=== PATIENT | female | born 1965 | race Caucasian/White ===

== ENCOUNTER → 2020-05-06 13:08 | Outpatient (CLI) | payer BC, SELFPAY ==
[2020-05-06 13:52] VITALS: BP 123/66; PULSE 71; RESP 18; TEMP 36.6; O2SAT 18
[2020-05-06 14:07] VITALS: BP 131/71; PULSE 73; RESP 18; TEMP 36.6; O2SAT 100
[2020-05-06 14:18] VITALS: BP 135/66; PULSE 66; RESP 18; TEMP 36.6; O2SAT 100
[2020-05-06 14:33] VITALS: BP 119/74; PULSE 69; RESP 18; TEMP 36.6; O2SAT 100
[2020-05-06 14:48] VITALS: BP 121/61; PULSE 70; RESP 18; TEMP 36.6; O2SAT 100
[2020-05-06 15:01] VITALS: BP 134/74; PULSE 63; RESP 18; TEMP 36.9; O2SAT 100
== END ==
PROVIDERS: PCP Family Medicine; Visit Provider Family Medicine
DX: U07.1 COVID-19 (principal)
CPT/HCPCS: 96365

== ENCOUNTER → 2020-08-28 08:47 | Outpatient (CLI) | payer BC, SELFPAY ==
--- NOTE | 2020-08-28 08:53 | CT_ITS ---
PROCEDURE: CT ABDOMEN PELVIS WO/W CON CLINICAL INDICATION: GROSS HEMATURIA COMPARISON: No exams were available for comparison TECHNIQUE: IV Contrast: 75ML OPTIRAY 350 Oral Contrast none given Axial images obtained with sagittal and coronal reformats. All CT scans at the facility use one or more dose reduction, viz: automated exposure control, ma/kV adjustment per patient size (including targeted exams where dose is matched to indication, i.e. head), or iterative reconstruction technique. FINDINGS: Lower thorax: No acute finding ABDOMEN: Liver: No masses or biliary dilatation. Gallbladder: Nondistended. No radio opaque stones. Pancreas: No masses or peripancreatic fluid collections. Spleen: unremarkable Adrenals: unremarkable Kidneys/ureters: Kidneys are normal in size and show symmetrical function both grossly normal. Contrast images show no calculi. There is no obstructive uropathy of either kidney. ABDOMEN & PELVIS: Stomach bowel: Nondistended. No obvious mass or thickening. Small bowel appears normal. There is moderate scattered stool and gas seen throughout the colon. Peritoneum: No abnormal fluid collections. No obvious inflammatory changes. No free air. Lymph nodes: No enlarged lymph nodes apparent. Vasculature: No evidence of abdominal aortic aneurysm. No retroperitoneal hemorrhage evident. There are rather prominent venous structures just anterior and superior to uterus. Bones: No acute fracture PELVIS: Reproductive: The uterus is normal in size and slightly retroverted with slightly prominent vascularity possibly within uterine fibroids. Bladder: Nondistended. No obvious stones or masses. There is a tiny amount of free fluid in the cul-de-sac likely physiologic. Appendix: I do not definitely identify the appendix but no pericecal inflammatory changes. 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 Question small uterine fibroid as well. Dictated by: Dr. Justin Foote MD 08/28/2020 10:00 Dr. Justin Foote MD in [place] 08/28/2020 10:00
== END ==
PROVIDERS: PCP Family Medicine; Visit Provider Family Medicine
DX: R31.0 Gross hematuria (principal)
CPT/HCPCS: 74178; Q9967

== ENCOUNTER → 2020-09-09 15:02 | Outpatient (CLI) | payer BC, SELFPAY | PROVIDERS: Visit Provider Urology | DX: Z01.812 Encounter for preprocedural laboratory examination (principal); Z20.822 Contact with and (suspected) exposure to COVID-19; R31.9 Hematuria, unspecified | CPT/HCPCS: U0003 ==

== ENCOUNTER 2020-09-10 15:00 | Outpatient (RCR) | payer BC, SELFPAY | END 2020-09-10 15:05 | disposition home or self-care (01) | LOC: PT 15:00 | PROVIDERS: PCP Family Medicine; Visit Provider Family Medicine | DX: M54.16 Radiculopathy, lumbar region (principal) | CPT/HCPCS: 97010; 97014; 97033; 97035; 97140; 97163; G0283 ==

== ENCOUNTER 2020-09-11 12:08 | Day surgery (SDC) | payer BC, SELFPAY ==
[2020-09-08 14:57] VITALS: BMI 25.4
[2020-09-11] VITALS (11 sets, daily range): BP systolic 104–117; BP diastolic 54–77; PULSE 65–77; RESP 16–20; TEMP 36.2–37.7; O2SAT 95–100
--- NOTE | 2020-09-11 13:33 | P.PN_ITS ---
[facility] Anesthesia Checklist - Patient Identification Patient Identification: Arm Band - Structural Data Admitted From: Home Planned Operative Procedure/s: Cystoscopy with Possible TURBT Consent for Planned Operative Procedure(s) Verified: Yes Verified Documents: Surgical Consent, History and Physical - NPO Status Verified Time NPO: 00:00 - Additional verifications Anesthesia Reactions: No Hx Blood Transfusions: No Blood Transfusion Reaction: No - Airway Assessment C-Spine Mobility Assessed: Yes (mp2) TMJ Mobility Assessed: Yes Dentition: Good Dentition - Neurological Assessment Level of Consciousness: Awake, Alert - Anesthesia Plan Anesthesia Risk discussed: Yes Anesthesia Plan: Verified ASA Class: II Anesthesia Type: General [facility] History Medical History: Reports:: Cancer (leukemia - 2016) Denies:: Diabetes Mellitus Type 1, Diabetes Mellitus Type 2, Internal Pacemaker, Lung Disease, MRSA, Seizures *Have you ever received a pneumonia vaccine?: No *Have you received a flu vaccine this season?: Yes Other Medical History: Denies: Blood Transfusion Reaction Anesthesia experience/problems:: nac Other Surgeries: Yes: No Previous Surgery, Colonoscopy. No: Pacemaker Amputation: No Fractures: No - *Social History Last grade of school completed: Advanced degree Smoking Status: Never smoker Alcohol Intake: current Alcohol Intake Frequency:: a few times a week Substance Use Type: denies use *Occupational Status:: employed Housing: house Household Members: spouse *Travel in the last 8 weeks: None Family Hx:: No significant family history
--- NOTE | 2020-09-11 14:09 | HMH.ANESI ---
[facility] Anesthesia Record Part I Intake, IV Amount: 1,000 Estimated blood loss (mL): 0 Urine output (mL): 0 Blood Pressure: 104/54 SaO2: 95 Pulse Rate: 73 Respiratory Rate: 16 Temperature: 97.9 F Patient is:: Drowsy, Stable Stable to PACU at:: 14:05
--- NOTE | 2020-09-11 15:22 | P.OP_ITS ---
Date of procedure: 09/11/20 Pre-op Diagnosis:: Gross hematuria Post-op Diagnosis:: Gross hematuria from probable bladder tumor Procedure performed:: Transurethral resection of abnormal bladder tissue with fulguration Surgeon:: Niles Christianson MD FIRST OFFICER AND [employer]IGHT INSTRUCTOR:: Eber Alvarado Anesthesia: LMA Estimated blood loss (mL): 2 Clinical Note:: 55-year-old white female with a 1 month history of gross hematuria on a daily basis. Recent CT scan showed no evidence of upper or lower tract abnormalities and she presents today for cystoscopic evaluation. Operative findings:: Bleeding vessel noted at the 4 o'clock position in the bladder. The tissue around the bleeding vessel is abnormal but shallow and fluffy in appearance. Tissue was resected and fulgurated. Tissue sent off for analysis. Operative note:: Patient taken to the operating room after informed consent was obtained. She was placed on the operating table in the supine position and general anesthesia administered. Prepped of antibiotics administered. She was then placed into the dorsal lithotomy position and prepped draped in the standard surgical fashion. The urethra was a bit stenotic and it was dilated to [place]. The [place] cystoscope then passed into the bladder and the bladder examined in a systematic fashion. There was a blood vessel that was actively bleeding at the 4 o'clock position. The tissue around the bleeding vessel was fluffy but shallow in appearance. There was not a typical bladder cancer appearance. No other abnormalities were noted. The cystoscope removed and our [place] resectoscope sheath with obturator passed into the urethra. The resectoscope passed through the sheath and the tissue at the 4 o'clock position was resected. The tissue did not resect very cleanly however. The tissue was sent off for analysis. The base of the tissue was fulgurated and hemostasis achieved. The scope was then removed and a 16 [place] Yadav catheter placed. Patient tolerated procedure well there are no complications. Condition: stable Disposition: PACU Specimens:: Bladder tissue Complications:: None
--- NOTE | 2020-09-14 07:14 | P.PN_ITS ---
[facility] Anesthesia Record Part II Discharge Time: 14:35 Destination: Surgical Day Care (OP Surgery) PACU nurse assessment reviewed?: Yes Patient Condition:: Good Anesthesia Complications:: None Swallowing reflex intact?: Yes Cyanosis?: No Blood Pressure: 109/65 Pulse Rate: 65 Temperature: 97.1 F Mental Status: Alert & Oriented Pain level:: 0 Nausea and/or vomitting:: None Intake, IV Amount: 0
[2020-09-14 07:15] VITALS: BP 109/65; PULSE 65; TEMP 36.2
== END 2020-09-11 15:27 | disposition home or self-care (01) ==
LOC: OR 12:10
PROVIDERS: PCP Family Medicine; Visit Provider Urology
PROC: 0TJB8ZZ Inspection of Bladder, Via Natural or Artificial Opening Endoscopic (ICD-10-PCS; CPT 52000; principal; 2020-09-11 13:45)
DX: N32.89 Other specified disorders of bladder (principal); Z79.899 Other long term (current) drug therapy; Z85.6 Personal history of leukemia; Z88.0 Allergy status to penicillin
CPT/HCPCS: 52224; J2405

== ENCOUNTER → 2021-04-02 12:35 | Outpatient (CLI) | payer BC, SELFPAY | PROVIDERS: Visit Provider Urology | DX: Z01.812 Encounter for preprocedural laboratory examination (principal); Z11.52 Encounter for screening for COVID-19; R31.9 Hematuria, unspecified | CPT/HCPCS: C9803; U0003; U0005 ==

== ENCOUNTER → 2021-04-16 17:07 | Outpatient (CLI) | payer BC, SELFPAY | PROVIDERS: Visit Provider Urology | DX: Z01.812 Encounter for preprocedural laboratory examination (principal); Z11.52 Encounter for screening for COVID-19; R31.9 Hematuria, unspecified | CPT/HCPCS: C9803; U0003; U0005 ==

== ENCOUNTER 2021-04-19 08:51 | Day surgery (SDC) | payer BC, SELFPAY ==
[2021-04-01 09:12] VITALS: BMI 24.3
[2021-04-19 09:11] VITALS: BP 104/71; PULSE 79; RESP 18; TEMP 36.7; O2SAT 96
[2021-04-19 09:58] VITALS: BP 121/78; PULSE 68; RESP 16; TEMP 36.2; O2SAT 99
--- NOTE | 2021-04-19 12:13 | HMH.OPNOTE ---
Date of procedure: 04/19/21 Pre-op Diagnosis:: History of gross hematuria due to an indeterminate bladder lesion. Post-op Diagnosis:: Same Procedure performed:: Cystoscopy Surgeon:: Niles Christianson MD Anesthesia: local Estimated blood loss (mL): 0 Clinical Note:: 86-year-old white female with history of gross hematuria. Cystoscopy was performed 6 months ago that showed an abnormality in the bladder that was bleeding. The lesion was resected the base of the lesion was cauterized. Pathology showed an indeterminate lesion and no carcinoma. Operative findings:: No evidence of bladder abnormalities. Operative note:: Patient taken to the cystoscopy suite after informed consent was obtained. On the stretcher she was placed into the frog-leg position. She was prepped and draped in standard surgical fashion and 2% lidocaine placed into the urethra. 5 minutes the flexible cystoscope introduced into the urethra and into the bladder without difficulty. The bladder was examined in a systematic fashion. There is no evidence of mucosal abnormalities, stones, diverticula, trabeculation or bladder tumor. The ureteral orifices were in their normal anatomic position with clear efflux of urine. The bladder neck and urethra were within normal limit. Scope removed the patient tolerated the procedure well there are no complications. We discussed the findings and we will see her back in 1 year with cystoscopy. Condition: stable Disposition: same day Specimens:: None Complications:: None
== END 2021-04-19 10:10 | disposition home or self-care (01) ==
LOC: OUTP 08:56
PROVIDERS: PCP Family Medicine; Visit Provider Urology
PROC: (CPT 52000; principal; 2021-04-19 09:30)
DX: N32.9 Bladder disorder, unspecified (principal); R31.0 Gross hematuria; I49.9 Cardiac arrhythmia, unspecified; Z85.9 Personal history of malignant neoplasm, unspecified; Z79.899 Other long term (current) drug therapy; Z88.0 Allergy status to penicillin; Z88.1 Allergy status to other antibiotic agents
CPT/HCPCS: 52000

== ENCOUNTER 2021-05-10 16:30 | Outpatient (RCR) | payer BC, SELFPAY ==
--- NOTE | 2021-04-02 10:35 | HMH.PTOPEV ---
PT Outpatient Evaluation Rehab PT Outpatient Evaluation Start: 04/02/21 09:42 Freq: Status: Active Protocol: Document 04/02/21 09:42 YOVANI (Rec: 04/02/21 10:35 YOVANI [id number]) Electronically Signed By Vaughn Kwok, PT 04/02/21 09:42 Outpatient Therapy Subjective History Subjective History Pt reports h/o chronic right sided/midline neck pain beginning in lat . Pt reports pain has progressed w/ radicular s/s down right UE to forearm/hand area w/pain, weakness, and N&T. Pt reports some localized right elbow pain (lateral epicondyle), and some cervico-genic HUNT s/s. PMH:migraine HUNT's Chief Complaint Pain,Stiff,Paresthesia, Weakness Symptom Type Ache,Dull,Numbness,Tingling Symptoms Relieved By Rest/Positioning Symptoms Aggravated By Physical Activity,Lifting Prior Functional Limitations Reaching,Lifting,Housework, Desk Work/Reading,Driving Current Functional Limitations Reaching,Lifting,Housework, Desk Work/Reading,Driving Symptom Description Constant but Variable Level of pain today (0-10) 2 Pain scale - at its best (0-10) 1 Pain scale - at its worst (0-10) 7 Cervical Eval Palpation Cervical Muscles R Cervical Paraspinal,R CT Junction,R Upper Trapezius Cervical/Thoracic Palpation Findings Tenderness,Trigger Point, Muscle Guarding Flexibility Deficits Upper Trapezius Muscle Length (R) Moderate Tightness Levaetor Scapulae Muscle Length (R) Mild Tightness Scalene Group Muscle Length (R) Mild Tightness Passive Joint Mobility Cervical PIVM WNL: R OA L OA R AA L AA R C2/3 L C2/3 R C3/4 L C3/4 R C4/5 L C4/5 R C5/6 L C5/6 R C6/7 L C6/7 R C7/T1 L C7/T1 AROM Cervical Spine Extension Active Range of 0-36 Motion (degrees) Cervical Spine Flexion Active Range of 0-34 Mynor
--- NOTE | 2021-05-04 15:27 | HMH.RHREAS ---
Rehab Reassessment Rehab OP Re-assessment Start: 05/04/21 15:05 Freq: Status: Active Protocol: Document 05/04/21 15:06 YOVANI (Rec: 05/04/21 15:26 YOVANI [id number]) Electronically Signed By Vaughn Kwok, PT 05/04/21 15:06 Rehab Re-assessment Subjective Subjective Pt reports 0-1/10 neck pain on VAS w/activity and at rest, and reports no headaches in last ~7-10days, and feels 90- 95% better since I eval. Objective Objective Notes CROM: FLX 0-75, EXT 0-55, R SB 0-38, L SB 0-45, ZAK. ROT 0- 55 MMT: ZAK. DELTOID 4+-5/5 TTP: RIGHT UT MM 0-1/4, RIGHT CERVICAL PARASPINALS 0-1/4 Assessment Progress Assessment Progressing as Expected Assessment Notes IMPROVED CROM, STRENGTH, TTP Patient goals met STG'S 12/10 LTG'S 09/09 Goals Not Met LTG'S 06/09 Plan Plan Pt to continue w/skilled P.T. to make further improvements in CROM (R SB), and TTP to allow for optimal function at home and w/work related activity Frequency of Therapy 1-2x/wk Duration of therapy 1-3wks Time and Billing Re-Eval Time 15 Re-Eval Billing Units 1 PHYSICIAN CERTIFICATION: I certify the specified therapy services for Margie Corey are required, authorized, and reviewed every 30 days.
== END 2021-05-10 16:35 | disposition home or self-care (01) ==
LOC: PT 16:30
PROVIDERS: PCP Family Medicine; Visit Provider Family Medicine
DX: M54.12 Radiculopathy, cervical region (principal)
CPT/HCPCS: 20560; 97010; 97012; 97014; 97035; 97110; 97140; 97163; 97164; G0283

== ENCOUNTER → 2021-07-19 11:10 | Outpatient (CLI) | payer BC, SELFPAY ==
--- NOTE | 2021-07-19 11:18 | XR_ITS ---
FINAL REPORT CLINICAL HISTORY: RT SHOULDER PAIN FINDINGS: RIGHT SHOULDER: 3 views of the right shoulder were obtained. There is no acute fracture or dislocation. There is mild acromioclavicular joint degenerative change. There is no soft tissue abnormality. IMPRESSION: Mild acromioclavicular joint degenerative change. Reviewed, Interpreted and Dictated by Shaun Childs III, MD Transcribed by Delbert Mcmillan Authenticated by Shaun Childs III, MD on 07/19/2021 01:33:11 PM [facility]
--- NOTE | 2021-07-19 11:18 | XR_ITS ---
FINAL REPORT CLINICAL HISTORY: RT SHOULDER PAIN,ANESTHESIA OF SKIN,PARESTHESIA OF SKIN FINDINGS: CERVICAL SPINE Five views were obtained. There is no acute fracture. There is mild anterolisthesis of C4 on C5. There are ybat-[id number]-vntfhoxk degenerative changes. There are disc osteophyte complexes at C5-6 and C6-7. There is mild bilateral C5-C6 and C6-7 neural foraminal narrowing IMPRESSION: [id number]-ib-zhmjtjsk degenerative changes. Reviewed, Interpreted and Dictated by Shaun Childs III, MD Transcribed by Delbert Mcmillan Authenticated by Shaun Childs III, MD on 07/19/2021 01:33:[address] [facility]
== END ==
PROVIDERS: PCP Family Medicine; Visit Provider Nurse Practitioner Family
DX: M25.511 Pain in right shoulder (principal); R20.0 Anesthesia of skin; R20.2 Paresthesia of skin
CPT/HCPCS: 72050; 73030

== ENCOUNTER → 2023-03-09 08:55 | Outpatient (CLI) | payer BC, SELFPAY ==
--- NOTE | 2023-03-09 09:00 | XR_ITS ---
FINAL REPORT CLINICAL HISTORY: Osteoporosis screening COMPARISON: None FINDINGS: Using L1-4, the bone mineral density of the spine is 1.258 g/cm2, corresponding to T-score of 1.9, within normal limits. Using the left hip, the bone mineral density of the femoral neck is 1.275 g/cm2, corresponding to a T-score of 2.7, within normal limits. Using the right hip, the bone mineral density of the femoral neck is 1.298 g/cm2, corresponding to a T-score of 2.9, within normal limits. FRAX not reported because all T-scores at or above-1.0. NOTE: T-score: Standard deviation compared with peak bone mass of young adult mean. *Following the recommendations of the International Society of Bone densitometry, classification of hip BMD is based on the lower of two T-scores; total hip or femoral neck. IMPRESSION: Normal bone mineral density of the lumbar spine and hips. Reviewed, Interpreted and Dictated by Shaun Childs III, MD Transcribed by Sharmin Vu Authenticated and [facility]
== END ==
PROVIDERS: PCP Family Medicine; Visit Provider Nurse Practitioner Obstetrics & Gynecology
DX: Z13.820 Encounter for screening for osteoporosis (principal); Z78.0 Asymptomatic menopausal state; R61 Generalized hyperhidrosis
CPT/HCPCS: 77080